=== PATIENT | female | born 1990 | race Caucasian/White ===

== ENCOUNTER 2020-03-29 05:48 | Inpatient (IN) ==
[2020-03-29] MEDS ORDERED: Lactated Ringers 1000 ml BAG 1,000 ML IV ONE ×2 (06:50→13:54)
[2020-03-29] MEDS ORDERED: Lactated Ringers 1000 ml BAG 1,000 ML IV SCH ×2 (07:00→14:00)
[2020-03-29 07:31] LABS: Urine Benzodiazepine Screen None Detected (None Detect); Urine Cannabinoids Screen None Detected (None Detect); Urine Opiates Screen None Detected (None Detect)
[2020-03-29] MEDS: Ondansetron ODT 4 mg TAB 4 MG TAB SL PRN ×2 (08:19→19:57)
[2020-03-29 13:01] LABS: ABS Lymphocytes 1.6 10^3/ul (1.0-4.8); ABS Monocytes 0.6 10^3/ul (0-0.8); ABS Neutrophils 10.9 10^3/ul (1.5-7.7); Eosinophil % 0.4 %; Hematocrit 39 % (35-47); Lymphocyte % 12.3 %; Mean Corpuscular HGB Conc 34 g/dL (31-36); Mean Corpuscular Hemoglobin 30 pg (27-31); Mean Corpuscular Volume 89 fL (80-97); Nucleated Red Blood Cells % 0.1; Platelet Count 252 10^3/uL (150-450); Red Blood Count 4.34 10^6 /uL (3.70-4.87); Red Cell Distribution Width 16 % (10-15); White Blood Count 13.2 10^3/uL (3.5-10.8)
[2020-03-29] MEDS ORDERED: OBEPIDURAL 250 ML EPIDURAL ONE (13:07)
[2020-03-29] MEDS ORDERED: EPHEDrine (Pressors) 50 MG/ML VIAL IV PUSH PRN ×2 (13:54)
[2020-03-29] MEDS ORDERED: Sodium Citrate/Citric Acid LIQ 15 ML UDC PO PRN (13:54)
[2020-03-29] MEDS ORDERED: Phenylephrine 40 mcg/mL 10mL (400mcg) SYRINGE IV PUSH PRN ×2 (13:54)
[2020-03-29] MEDS ORDERED: OBEPIDURAL 250 ML EPIDURAL SCH (14:00)
[2020-03-29] MEDS ORDERED: Oxytocin in LR 20 UNITS/1,000 ML BAG IVPB SCH (21:00)
[2020-03-30] MEDS ORDERED: ceFOXitin 2 GM IVPREMIX 2 GM/50 ML BAG ONE (02:53)
[2020-03-30] MEDS ORDERED: ceFOXitin 2 GM IVPREMIX 2 GM/50 ML BAG IVPB SCH (03:00)
[2020-03-30] MEDS ORDERED: Gentamicin ADULT 310 MG in NS 0.9% 100 ml BAG 100 ML IVPB ONE (03:00)
[2020-03-30] MEDS ORDERED: Methylergonovine 0.2 mg AMPULE 1 ml AMP IM ONE (05:22)
[2020-03-30] MEDS ORDERED: Dibucaine 1% OINT 28.35 GM TUBE PR PRN (05:22)
[2020-03-30] MEDS ORDERED: Witch Hazel PAD JAR TOPICAL PRN (05:22)
[2020-03-30] MEDS ORDERED: Glycerin ADULT 2.4 gm SUPP PR PRN (05:22)
[2020-03-30] MEDS ORDERED: Lactated Ringers 1000 ml BAG 1,000 ML IV SCH (06:00)
[2020-03-30] MEDS ORDERED: Oxytocin in LR 20 UNITS/1,000 ML BAG IVPB SCH (06:00)
[2020-03-30] MEDS ORDERED: Lidocaine 1% VIAL 10 MG/ML VIAL ONE (06:37)
[2020-03-30] MEDS: Ondansetron ODT 4 mg TAB 4 MG TAB SL PRN (08:12)
[2020-03-31 06:22] LABS: ABS Eosinophils 0.1 10^3/ul (0-0.6); ABS Lymphocytes 2.8 10^3/ul (1.0-4.8); ABS Neutrophils 9.6 10^3/ul (1.5-7.7); Eosinophil % 0.4 %; Hematocrit 28 % (35-47); Hemoglobin 9.4 g/dL (12.0-16.0); Mean Corpuscular HGB Conc 34 g/dL (31-36); Mean Corpuscular Hemoglobin 30 pg (27-31); Mean Corpuscular Volume 90 fL (80-97); Mean Platelet Volume 10.2 fL (7.4-10.4); Platelet Count 144 10^3/uL (150-450); Red Blood Count 3.11 10^6 /uL (3.70-4.87); Red Cell Distribution Width 16 % (10-15); White Blood Count 13.4 10^3/uL (3.5-10.8)
[2020-04-01 08:59] VITALS: BP 131/72
== END 2020-04-01 11:15 | disposition home or self-care (01) | DRG 806 ==
LOC: MCHOBOUT 05:48 → MCHOB 06:48
PROVIDERS: ADMIT Midwife; ATTEND Midwife